=== PATIENT | female | born 1955 | race Caucasian/White ===

== ENCOUNTER 2021-06-26 16:39 | Emergency (ER) | payer MEDICARE ==
[2021-06-26 17:26] LABS: BASOPHIL 0.5 % (0-2); EOSINOPHIL 0 % (0-7); HCT 43.8 % (37.0-47.0); HGB 14.3 g/dl (12.5-16.0); LYMPHOCYTE 7.1 % (15-48); MCH 32.5 pg (25.0-31.0); MCHC 32.6 g/dL (32.0-36.0); MCV 99.5 fL (78.0-100.0); MONOCYTE 6.7 % (0-12); MPV 9.6 fL (6.0-9.5); NEUTROPHIL 84.9 % (41-80); NRBC 0; PLT 382 K/uL (150-400); RDW 14.6 % (11.5-14.0); WBC 17.2 K/uL (4.0-10.5)
[2021-06-26 17:30] LABS: INR 1.01 (0.9-1.2); PROTHROMBIN TIME 12.7 SECONDS (11.8-13.4); PTT 31.6 SECONDS (24.4-34.7)
[2021-06-26 17:42] LABS: ALBUMIN 3.9 g/dL (3.4-5.0); BILIRUBIN - TOTAL 1.1 mg/dL (0.2-1.0); BUN/CREAT RATIO (CALC) 14.7 RATIO; CREATININE 0.75 mg/dL (0.51-0.95); GLOBULIN (CALCULATION) 3.9 g/dL; TOTAL PROTEIN 7.8 g/dL (6.4-8.2)
[2021-06-26 18:00] LABS: LIPASE 189 U/L (73-393)
[2021-06-26 18:11] LABS: LACTIC ACID 1.4 mmol/L (0.4-1.9)
[2021-06-26] MEDS ORDERED: NORCO 5-325 TA1 EACH PO (20:48)
[2021-06-26] MEDS ORDERED: ONDANSETRON ODT4 MG SL (20:48)
== END 2021-06-26 21:13 | disposition home or self-care (01) ==
LOC: FER 16:39
PROVIDERS: Emergency Medicine
DX: R10.11 Right upper quadrant pain (principal); R10.13 Epigastric pain; K80.20 Calculus of gallbladder without cholecystitis without obstruction
CPT/HCPCS: 36415; 71045; 80053; 83605; 83690; 84484; 85025; 85610; 85730; 93005; G0480; Q9967